=== PATIENT | male | born 1935 | race Caucasian/White ===

== ENCOUNTER 2021-10-12 17:09 | Inpatient (IN) | payer MEDICARE ==
[~2021-10-12] VITALS: Ht 162.6 cm; Wt 59.2 kg
[~2021-10-12 17:09] MED LIST: DIFLUCAN150 MG PO
[2021-10-12 19:00] VITALS: BP 166/91; PULSE 111; TEMP 98.2
--- NOTE | 2021-10-12 19:00 | NUR ---
RECEIVED REPORT FROM DAY SHIFT RN, RAMÓN, THAT PATIENT IS EN ROUTE FROM [facility] FOR ADMIT TO ROOM 344 AND THAT EMS TRANSPORT OF PATIENT WAS AT LEAST 10 MIN OUT FROM ARRIVAL TO [facility]. WAITING FOR PATIENT ARRIVAL
--- NOTE | 2021-10-12 19:00 | NUR ---
PATIENT ARRIVED TO ROOM 344 VIA EMS CART. OBSERVED PATIENT WITH O2 AT 2 LPM, SOA WITH EXERTION. IV SITE TO RAC, SALINE LOCKED. PATIENT DENIES PAIN TO ABD ON PALPATION. NO FAMILY PRESENT WITH PATIENT. PATIENT CONFUSED TO PLACE, DID NOT KNOW WHY HE IS IN THE HOSPITAL, STATED "I KNOW I DIDN'T FEEL GOOD".
[2021-10-12] MEDS ORDERED: LEVOXYL0.05 MG PO (19:28)
--- NOTE | 2021-10-12 19:38 | NUR ---
PATIENT NOT ORIENTED TO PLACE, SITUATION. SPEAKS CLEARLY AT TIME OF ADMISSION. OBSERVED SOA WITH EXERTION. DENIES CHEST PAIN/SOA. VOIDED DARK URINE WITH STRONG ODOR. NO SKIN WOUNDS OBSERVED TO BACK/BUTTOCKS/EXTREMITIES AT TIME OF ADMIT. DR BOWERS PRESENT TO EXAM PATIENT. NO FAMILY PRESENT WHEN PATIENT WAS ADMITTED.
[2021-10-12] MEDS ORDERED: COZAAR 50MG50 MG/TAB PO (19:50)
[2021-10-12] MEDS ORDERED: NAMENDA 10MG TA10 MG PO (19:51)
[2021-10-12] MEDS ORDERED: IMDUR 30MG30 MG/TAB PO (19:51)
[2021-10-12] MEDS ORDERED: EXELON3 MG PO (19:54)
[2021-10-12] MEDS ORDERED: CELEXA 20MG20 MG/TAB PO (19:57)
[2021-10-12] MEDS ORDERED: ASPIRIN 81M81 MG/TA2 PO (19:57)
[2021-10-12] MEDS ORDERED: MOBIC15 MG PO (19:58)
[2021-10-12] MEDS ORDERED: CRESTOR 10MG10 MG PO (19:58)
[2021-10-12] MEDS ORDERED: RESTORIL 1515 MG/CAP PO (19:59)
[2021-10-12] MEDS ORDERED: FLOMAX 0.40.4 MG/CAP PO (20:00)
[2021-10-12] MEDS ORDERED: CPAP (20:17)
[2021-10-12 20:43] VITALS: BP 180/101; PULSE 121
--- NOTE | 2021-10-12 20:43 | NUR ---
PATIENT DIAPHORETIC, PATIENT UNSURE OF CHEST BUT SAYS YES TO PAIN TO CHEST WITH TOUCH.
--- NOTE | 2021-10-12 20:50 | NUR ---
DR BOWERS NOTIFIED OF PATIENT'S COMPLAINTS OF CHEST PAIN, DIAPHORETIC. ORDERS GIVEN TO CALL HOSPITALIST. EKG ORDERED BY CHARGE NURSE. HOSPITALIST CALLED INFORMED OF PATIENT'S STATUS, ORDERS FOR LAB TO BE DRAWN.
[2021-10-12 20:53] VITALS: BP 172/73; PULSE 121; TEMP 99.2
--- NOTE | 2021-10-12 20:53 | NUR ---
NASIM CONWAY HERE, TO SEE PATIENT. LAB HERE FOR BLOOD DRAW.
[2021-10-12 20:57] VITALS: BP 166/88; PULSE 125
--- NOTE | 2021-10-12 21:26 | NUR ---
SPOKE WITH , CONSENT FOR SURGERY OBTAINED VIA PHONE, WITNESS BY RNLEANNA. PATIENT PLACED ON TELE, NASIM CONWAY ENTERED ORDERS FOR NITRODRIP TO BE STARTED PRIOR TO TRANSPORTING DOWN TO SURGERY, RECORDS MANAGER INFORMED. PROCESS COORDINATOR PRESENT NOW TO GET NITRO DRIP STARTED, HOME HEALTH RN HERE TO TAKE PATIENT DOWN TO SURGERY.
[2021-10-12 21:30] VITALS: BP 164/111; PULSE 121
--- NOTE | 2021-10-12 21:41 | NUR ---
PATIENT TO SURGERY VIA BED WITH O2 AND NITRODRIP STARTED WITH LR RUNNING CONCURRENTLY.
--- NOTE | 2021-10-12 21:42 | NUR ---
PATIENT PLACED ON TELE PRIOR TO TRANSPORT TO SURGERY.
[2021-10-13] VITALS (655 sets, daily range): BP systolic 95–195; BP diastolic 41–94; PULSE 74–100; TEMP 97.8–99.9; O2SAT 86–100
--- NOTE | 2021-10-13 00:24 | NUR ---
REPORT GIVEN TO SERVICE LINE COORDINATORKAYE OF PATIENT'S STATUS PREOP.
--- NOTE | 2021-10-13 00:34 | NUR ---
PATIENT ARRIVED FROM OR VIA ICU BED WITH AREA SAFETY MANAGER AND 2 ADDITIONAL STAFF IN ATTENDANCE, PATIENT CONNECTED TO ICU MONITORS INCLUDING ART LINE MONITOR, BEDSIDE REPORT GIVEN TO THIS NURSE REGARDING EVENTS THAT OCCURED IN OR INCLUDING PROCEDURES AND MEDICATIONS GIVEN ALONG WITH ISSUES MAINTAINING B/P AND NEEDING MEDICATION TO ASSIST WITH MAINTAINING B/P. NOTED PATIENT HAS A DRESSING TO MIDLINE ABDOMEN THAT IS CLEAN DRY AND INTACT WITH A WINNIE DRAIN WITH SMALL AMOUNT OF SANGUINEOUS DRAINAGE PRESENT IN BULB. PATIENT IS CURRENTLY ON NITRO DRIP AT 5MCG/MIN. PATIENT IS NOTED TO BE INTUBATED AND CURRENTLY SEDATED WITHOUT ANY SPONTANEOUS OR MEANINGFUL MOVEMENTS. REMAINING DETAILS IN ASSESSMENT CHARTING
[2021-10-13 03:07] LABS: ARTERIAL BLD GAS O2 SATURATION 97.4 % (92-100); ARTERIAL BLD GAS TCO2 CT 21.9; ARTERIAL BLOOD GAS BASE EXCESS -3.4 (-2-2); ARTERIAL BLOOD GAS HCO3 20.8 meq/L (22-26); ARTERIAL BLOOD GAS PCO2 34.7 mmHg (35-45); ARTERIAL BLOOD GAS PO2 102.9 mmHg (80-100)
--- NOTE | 2021-10-13 03:15 | NUR ---
NITRO DRIP STOPPED AT THIS TIME DUE TO LOW B/P WILL CONTINUE TO MONITOR
--- NOTE | 2021-10-13 03:17 | NUR ---
B/P DECREASING NOTIFIED ZORAIDA ROUES ORDER RECEIVED FOR LEVOPHED INITIATED AND TITRATED TO ATTAIN APPROPRIATE B/P
--- NOTE | 2021-10-13 05:00 | NUR ---
PATIENT STARTED ON A TITRATION OF SEDATION TO BALANCE B/P AND COMFORT FOR PATIENT, PATIENT IS ABLE TO AWAKEN TO VOICE BUT FALLS EASILY BACK TO SLEEP, DENIES PAIN BY SHAKING HEAD
[2021-10-13 05:35] LABS: HEMOGLOBIN 12.5 g/dl (13.5-18.0); MEAN CELL VOLUME 93 fl (80.0-100.0); MEAN CORPUSCULAR HEMOGLOBIN 31 pg (27-31); MEAN CORPUSCULAR HGB CONC 34 g/dl (33.0-37.0); MEAN PLATELET VOLUME 10.2 fl (7.4-10.4); PLATELET COUNT 212 K/mm3 (130-400); RED BLOOD COUNT 3.98 M/mm3 (4.20-5.60); REDCELL DISTRIBUTION WIDTH-CV 13.9 % (11.5-14.5)
[2021-10-13 05:51] LABS: ALBUMIN 2.5 gm/dL (3.4-4.8); BILIRUBIN,TOTAL 0.6 mg/dL (0.2-1.2); CALCIUM 8.2 mg/dL (8.4-10.2); CREATININE, serum 0.79 mg/dL (0.72-1.25); MAGNESIUM 1.7 mg/dL (1.6-2.6); TOTAL PROTEIN 5.2 gm/dL (6.2-8.1)
[2021-10-13 05:53] LABS: BAND 23 % (0-10); LYMPHOCYTE 1 % (20.0-51.0); NEUTROPHILS 75 % (42.0-75.2); PLATELET ESTIMATE NORMAL (NORMAL)
[2021-10-13 05:57] LABS: TROPONIN-I 0.017 ng/mL (0.00-0.033)
--- NOTE | 2021-10-13 06:04 | NUR ---
PATIENT RETURNED FROM OR AT 0034 INTUBATED S/P EX.LAP LESS THAN 24 HOURS OF INTUBATION, ALSO NOTED THAT PATIENT OPENS EYES WHEN TO VOICE AND TURN TO LOOK AT PERSON SPEAKING THEREFORE SEDATION VACATION NOT PREFORMED AT THIS TIME
--- NOTE | 2021-10-13 12:41 | NUR ---
Patient intubated. Phone call made to his Kely to complete intake information. Kely is tearful on the phone due to being worried about him and is frustrated by his "stubbornness". Kely reports that they both live at home alone in [place]. Patient is independent with his ADL's and does not utilize any DME to assist with mobility. Patient has no oxygen needs at home but does use a CPAP at home managed through [facility] in [place]. PCP is Yenny Gao at [facility] and they utilize [facility] for short term medications. roasterman medications are managed through [facility]. Kely reports that he does have a DPOA-HC on file and that [facility] should have a copy.
--- NOTE | 2021-10-13 17:23 | NUR ---
1355- pt extubated. pt on 2L NC spo2 96%. pt is confused but pleasant. denies pain unless moving.
[2021-10-14] VITALS (322 sets, daily range): BP systolic 143–155; BP diastolic 74–85; PULSE 72–89; TEMP 98.7–99.8; O2SAT 90–100
[2021-10-14 05:34] LABS: BASO % 0.1 % (0.0-2.0); GRAN # 6.9 K/mm3 (1.4-6.5); GRAN % 87.7 % (42.2-75.2); HEMOGLOBIN 10.8 g/dl (13.5-18.0); LYMPH # 0.4 K/mm3 (1.2-3.4); LYMPH % 4.9 % (20.0-51.0); MEAN CELL VOLUME 94 fl (80.0-100.0); MEAN CORPUSCULAR HEMOGLOBIN 31 pg (27-31); MEAN CORPUSCULAR HGB CONC 33 g/dl (33.0-37.0); MONO # 0.6 K/mm3 (0.1-0.6); PLATELET COUNT 176 K/mm3 (130-400); RED BLOOD COUNT 3.51 M/mm3 (4.20-5.60); REDCELL DISTRIBUTION WIDTH-CV 13.9 % (11.5-14.5)
[2021-10-14 05:41] LABS: HEMATOCRIT 33.1 % (42.0-52.0)
[2021-10-14 05:51] LABS: ALBUMIN 2.2 gm/dL (3.4-4.8); BILIRUBIN,TOTAL 0.5 mg/dL (0.2-1.2); C-REACTIVE PROTEIN 14.74 mg/dL (0.00-0.50); CALCIUM 7.9 mg/dL (8.4-10.2); CREATININE, serum 0.76 mg/dL (0.72-1.25); MAGNESIUM 1.8 mg/dL (1.6-2.6); POTASSIUM 3.8 mmol/L (3.5-4.5); TOTAL PROTEIN 4.8 gm/dL (6.2-8.1)
[2021-10-14 06:38] LABS: ARTERIAL BLD GAS O2 SATURATION 94.5 % (92-100); ARTERIAL BLD GAS TCO2 CT 25.5; ARTERIAL BLOOD GAS BASE EXCESS 0.6 (-2-2); ARTERIAL BLOOD GAS HCO3 24.3 meq/L (22-26); ARTERIAL BLOOD GAS PO2 69.5 mmHg (80-100); ARTERIAL BLOOD GAS pH 7.45 (7.35-7.45)
--- NOTE | 2021-10-14 07:00 | NUR ---
PT RESTING IN BED. VSS. PT HAS IVF RUNNING. NO NEEDS AT THIS TIME. WILL CONTINUE TO MONITOR.
--- NOTE | 2021-10-14 10:45 | NUR ---
First visit from the sustainability coach. No needs right now.
--- NOTE | 2021-10-14 12:25 | NUR ---
1210-REPORT CALLED TO GER FRANKLIN ALL QUESTIONS ANSWERED. 1225-PT TRANSFERED TO ROOM 326. GER FRANKLIN MET BEDSIDE.
--- NOTE | 2021-10-14 12:46 | NUR ---
PT TO ROOM 326 PER BED FROM ICU. PT IS ALERT AND PARTIALLY ORIENTED. LUNGS CTA, ON 2 L O2 PNC. WINNIE DRAIN WITH SEROSANGUENOUS DRAINAGE. RAMIREZ CATHETER TO DD. MID LINE INCISON WITH ABD AND GAUZE. PT RESTING QUIETLY IN BED. SKIN INTACT AT THIS TIME. PT HAS DEMNTIA BASELINE. PT IS FULL CODE. PT TOLERATING CLEAR LIQUIDS AT THIS TIME.
--- NOTE | 2021-10-14 12:55 | NUR ---
PT HAS A CENTRAL LINE SUBCLAVIAN LEFT WITH LR @75 MLS/HR.
--- NOTE | 2021-10-14 21:00 | NUR ---
PT IN BED. ORIENTED TO SELF. HAS RAMIREZ TO BSD, CARES GIVEN, URINE YELLOW. HAS RLQ WINNIE DRAIN WITH SEROSANGUINOUS DRAINAGE, EMPTIED 80CC. PT PULLING AT WINNIE DRAIN AND HAS DRSG TO MIDLINE PARTIALLY REMOVED. CHANGED ABD DRSG AND REPLACED DRAIN SPONGES TO WINNIE SITE. ATTEMPTED TO REORIENT PT AT THIS TIME. LEFT SUBCLAVIAN FLUSHES WELL. BED ALARM ON.
[2021-10-15] VITALS (12 sets, daily range): BP systolic 136–179; BP diastolic 70–89; PULSE 67–102; TEMP 97.5–98.7
--- NOTE | 2021-10-15 | NUR ---
PT HAS LEGS OVER SIDE OF BED, ASKING FOR HIS PANTS AND SHIRT. DOES NOT KNOW WHERE HE IS. ATTEMPTED REORIENTATION, DOES NOT LAST LONG. ASSISTED UP IN BED. IS NPO FOR ERCP TODAY.
--- NOTE | 2021-10-15 03:00 | NUR ---
HAS LEGS OVER SIDE OF BED. ASSISTED BACK TO BED.
[2021-10-15 08:49] LABS: BASO % 0.1 % (0.0-2.0); GRAN # 6.6 K/mm3 (1.4-6.5); GRAN % 86.8 % (42.2-75.2); HEMATOCRIT 37.8 % (42.0-52.0); HEMOGLOBIN 12.7 g/dl (13.5-18.0); LYMPH # 0.4 K/mm3 (1.2-3.4); LYMPH % 5.5 % (20.0-51.0); MEAN CELL VOLUME 92 fl (80.0-100.0); MEAN CORPUSCULAR HEMOGLOBIN 31 pg (27-31); MEAN CORPUSCULAR HGB CONC 34 g/dl (33.0-37.0); MEAN PLATELET VOLUME 9.6 fl (7.4-10.4); MONO # 0.6 K/mm3 (0.1-0.6); MONO % 7.2 % (1.7-9.3); PLATELET COUNT 214 K/mm3 (130-400); RED BLOOD COUNT 4.11 M/mm3 (4.20-5.60); REDCELL DISTRIBUTION WIDTH-CV 13.2 % (11.5-14.5)
[2021-10-15 08:59] LABS: CALCIUM 8.4 mg/dL (8.4-10.2); CREATININE, serum 0.73 mg/dL (0.72-1.25); POTASSIUM 3.7 mmol/L (3.5-4.5)
--- NOTE | 2021-10-15 10:24 | NUR ---
PT RESTING IN BED WAITING FOR ERCP. REPORT GIVEN. NEW DRESSING AQUACEL OVER MIDLINE AND DRAIN SPONGES CHANGED WHEN DRESSING BECAME SOILED.
--- NOTE | 2021-10-15 10:32 | NUR ---
The patient is to have an ERCP today. SW asked the PA for PT/OT to be ordered. Will await therapy's recs.
--- NOTE | 2021-10-15 14:16 | NUR ---
PT TO ROOM 326 PER BED WITH REPORT FROM ARISTEO FRANKLIN ENDO. VSS, PT IS ALERT INTERMITTANT CONFUSION.
--- NOTE | 2021-10-15 20:00 | NUR ---
Bedside report received, assumed care for manufacturing recruiter. Assessment complete. Alert but not oriented. VS stable. Denies pain/nausea/shortness of breath. Dressing to midline abdominal incision CDI. TELE reporting SR. WINNIE drain with serosanguineous ouput. Bean cath with clear yellow urine. Left triple lumen subclavian flushes well-good blood return. Plan of care discussed for this shift. Denies current needs. Call light in reach. Will monitor.
--- NOTE | 2021-10-16 00:30 | NUR ---
Resting eyes closed. No s/s of pain noted. Call light in reach. Will monitor.
[2021-10-16 00:36] VITALS: BP 154/76; PULSE 90; TEMP 98.8
[2021-10-16 04:45] VITALS: BP 154/81; PULSE 84; TEMP 97.9
--- NOTE | 2021-10-16 04:54 | NUR ---
Patient had an uneventful night and rested better than previous shift. Still confused. Left TLC flushes well with good blood return. Dressing to abd CDI. VS remained stable. Denied pain/nausea/shortness of breath-no s/s of. Bean cath with clear yellow urine. Call light in reach. Will monitor.
[2021-10-16 07:34] VITALS: BP 155/83; PULSE 87; TEMP 98.5
[2021-10-16 09:16] LABS: BASO % 0.1 % (0.0-2.0); EOS % 0.2 % (0.0-4.0); GRAN # 9.1 K/mm3 (1.4-6.5); GRAN % 89.7 % (42.2-75.2); HEMOGLOBIN 11.9 g/dl (13.5-18.0); LYMPH # 0.3 K/mm3 (1.2-3.4); LYMPH % 3.3 % (20.0-51.0); MEAN CELL VOLUME 92 fl (80.0-100.0); MEAN CORPUSCULAR HEMOGLOBIN 31 pg (27-31); MEAN CORPUSCULAR HGB CONC 34 g/dl (33.0-37.0); MEAN PLATELET VOLUME 9.6 fl (7.4-10.4); MONO # 0.7 K/mm3 (0.1-0.6); MONO % 6.4 % (1.7-9.3); PLATELET COUNT 224 K/mm3 (130-400); RED BLOOD COUNT 3.86 M/mm3 (4.20-5.60); REDCELL DISTRIBUTION WIDTH-CV 13.2 % (11.5-14.5)
[2021-10-16 09:24] LABS: HEMATOCRIT 35.5 % (42.0-52.0)
--- NOTE | 2021-10-16 09:38 | NUR ---
PROCEDURE IS EXPLAINED TO PT, PT IS COOPERATIVE, UNDERSTANDING IS LIMITED. NG TUBE HAS BEEN INSERTED INTO PT'S LEFT NARE, EPIGASTRIC CONTENTS DRAINING VIA WALL SUCTION @ THIS TIME. CONTENTS ARE DARK GREEN ET THERE IS A LARGE AMOUNT. PLACEMENT IS CONFIRMED BY CONTENTS ET AUSCULTATION. TUBE IS SECURED WITH TAPE TO NOSE ET GOWN. PT IS COOPERATIVE BUT IS VERY FORGETFUL ET HAS BEEN PULLING ON OTHER TUBES. MITTS PLACED ON PT'S BILATERAL HANDS. OXYGEN IS ON VIA NC. BED ALARM IS ON.
[2021-10-16 09:56] LABS: ALBUMIN 2.6 gm/dL (3.4-4.8); BILIRUBIN,TOTAL 0.7 mg/dL (0.2-1.2); CALCIUM 8.3 mg/dL (8.4-10.2); CREATININE, serum 0.85 mg/dL (0.72-1.25); POTASSIUM 3.3 mmol/L (3.5-4.5); TOTAL PROTEIN 5.6 gm/dL (6.2-8.1)
--- NOTE | 2021-10-16 10:48 | NUR ---
NG TUBE CLAMPED @ THIS TIME FOR 30 MINUTES FOR PT TO TAKE PO MEDS.
[2021-10-16 11:11] VITALS: BP 142/85; PULSE 93; TEMP 98
--- NOTE | 2021-10-16 11:45 | NUR ---
PT is recommending that the patient may need post-acute rehab upon discharge. He is walking 16 ft. SW attended clinical rounds. The patient had an NG tube placed. He vomited this morning. ESDRAS staffed with the hospitalist and the patient is to be here through the weekend. ESDRAS contacted the patient's , Kely, and updated her on the above and discussed post-acute rehab. Kely is interested in rehab and would prefer a facility in [place]. Her preferences are 1) [facility] 2) [facility] 3) [place] [facility]. Kely states that she is hopeful she can take the patient home from rehab, but is not sure yet. She will have to work with the facility. She reports that if the patient is needing a longer stay, they can not afford to private pay. ESDRAS discussed Medicaid. Kely states that she looked into Medicaid around [place] time and she was told that the patient would not qualify. They own a house and the patient has a pension. She would be interested to talking to our Financial Counselor and applying for Medicaid. ESDRAS consulted Curtis with Financial Counseling. ESDRAS contacted and faxed a referral to [facility] and [facility]. The patient has Medicare [facility], which requires auth. A request for auth will need to be submitted once it gets closer to discharge. *Discharge plan: SNF*
--- NOTE | 2021-10-16 13:19 | NUR ---
NG TUBE REMAINS IN PLACE ON LOW INTERMITTENT SUCTION. EPIGASTRIC CONTENTS ARE NOW CLEAR GREEN WITH SOLID PIECES SEEN IN TUBING. PT IS WORKING WITH PHYSICAL THERAPY @ THIS TIME.
--- NOTE | 2021-10-16 14:40 | NUR ---
Zaria, at [facility], states that they are not in-network with the patient's insurance. ESDRAS attempted to contact Stephanie at [facility]. ESDRAS left her a voicemail and faxed her the referral.
[2021-10-16 15:47] VITALS: BP 151/69; PULSE 84; TEMP 98.8
--- NOTE | 2021-10-16 16:04 | NUR ---
Whit, at [facility], reports that they are unable to meet the patient's needs and have declined the patient. ESDRAS contacted the patient's , Kely, to update and to discuss sending more referrals out, in the event [facility] cannot take. Kely states that she would prefer a facility close to [place]. She is interested in [facility] in [place]. She would prefer not to have to come to [place]. ESDRAS contacted and faxed a referral to [facility] in [place], [facility] in [place], [facility], [place], and [facility]. Awaiting screens.
--- NOTE | 2021-10-16 16:16 | NUR ---
PT HAS BEEN REPOSITIONED IN BED SEVERAL TIMES. GAYMAR BOOTS PLACED ONTO PT'S BILATERAL FEET FOR PROTECTION. PT APPEARS RELAXED WITH EYES CLOSED. NG TUBE IN PLACE ON LOW INTERMITTENT SUCTION, CONTENTS ARE CLEAR GREEN WITH SOLID PIECES SEEN IN TUBING.
[2021-10-16 20:29] VITALS: BP 153/74; PULSE 77; TEMP 98.1
--- NOTE | 2021-10-16 21:12 | NUR ---
PT RESTING CALMLY BUT CONFUSED. DENEIS PAIN. SEE SHIFT ASSESSMENT. CALL LIGHT IN REACH. BED ALARM SET.
[2021-10-17 00:16] VITALS: BP 146/66; PULSE 75; TEMP 99.3
--- NOTE | 2021-10-17 04:19 | NUR ---
PT HAS SLEPT INTERMITTENTLY THROUGH THE NIGHT. CALM AND COOPERATIVE. TOTAL NG DARK GREEN DRAINAGE 140CC THIS SHIFT. WINNIE DRAIN RED BLOODY 30CC.
[2021-10-17 04:26] VITALS: BP 145/69; PULSE 74; TEMP 98.5
[2021-10-17 06:24] LABS: BASO % 0.1 % (0.0-2.0); EOS # 0.1 K/mm3 (0.0-0.7); EOS % 1.1 % (0.0-4.0); GRAN % 84.7 % (42.2-75.2); HEMOGLOBIN 10.4 g/dl (13.5-18.0); LYMPH # 0.4 K/mm3 (1.2-3.4); MEAN CELL VOLUME 95 fl (80.0-100.0); MEAN CORPUSCULAR HEMOGLOBIN 31 pg (27-31); MEAN CORPUSCULAR HGB CONC 33 g/dl (33.0-37.0); MEAN PLATELET VOLUME 9.8 fl (7.4-10.4); MONO # 0.7 K/mm3 (0.1-0.6); MONO % 8.6 % (1.7-9.3); PLATELET COUNT 198 K/mm3 (130-400); RED BLOOD COUNT 3.34 M/mm3 (4.20-5.60); REDCELL DISTRIBUTION WIDTH-CV 13.2 % (11.5-14.5)
[2021-10-17 06:33] LABS: HEMATOCRIT 31.8 % (42.0-52.0)
[2021-10-17 06:36] LABS: CALCIUM 8.1 mg/dL (8.4-10.2); CREATININE, serum 0.69 mg/dL (0.72-1.25); POTASSIUM 3.4 mmol/L (3.5-4.5)
[2021-10-17 08:00] VITALS: BP 153/64; PULSE 64; TEMP 98.7
--- NOTE | 2021-10-17 09:04 | NUR ---
Patient up to the chair this am. He was steady on his feet. rounded, plan of care reviewed. Ng tube clamped per orders. Filippo drain Dc per orders. Patient tolerated well. Triple lumen with medication per orders. New dressing applied & blood return adequate. Bean to DD. Patient remains Npo, but denies nausea. Bowels still hypoactive. Will encourage activity today. Log Brander assisted with hygiene. I did speak to Gail Holland about possible thrush noted when oral cares given by this nurse. High fall risk protocol followed. Zenon mccoy.
--- NOTE | 2021-10-17 11:48 | NUR ---
Patient sitting up in chair, denies pain. Denies nausea. Ng tube remains clamped, residual 4 mls. Zenon mccoy.
[2021-10-17 12:00] VITALS: BP 137/63; PULSE 65; TEMP 98.6
--- NOTE | 2021-10-17 14:47 | NUR ---
Patient assisted out of chair to ambulate. He ambulated to doorwalk with walker & he did well. No dyspnea & steady on his feet with walker. He is in good spirits. His family did visit this afternoon. Ng remains clamped without nausea. Will monitor.
[2021-10-17 16:00] VITALS: BP 156/84; PULSE 85; TEMP 98.1
--- NOTE | 2021-10-17 18:24 | NUR ---
Elan is sitting up in chair. warm blanket provided.
--- NOTE | 2021-10-17 18:44 | NUR ---
Patient up and we ambulated halls. Stand by assist with walker, he did well. Walked greater than 200 feet. Patient 92 percent on room air after walking halls without oxygen. Patient sitting up in chair with feet reclined. Denies pain & nausea. Will report off to night nurse
[2021-10-17 19:49] VITALS: BP 128/75; PULSE 83; TEMP 98.4
--- NOTE | 2021-10-17 19:59 | NUR ---
PT AWAKE AND SITTING IN CHAIR. CONFUSED BUT CALM AND COOPERATIVE. DENIES NEEDS. NG CLAMPED AT THIS TIME. NO GI COMPLAINTS. NO RESIDUAL. CALL LIGHT IN REACH. WATCHING TV.
[2021-10-18 00:26] VITALS: BP 140/71; PULSE 72; TEMP 98
--- NOTE | 2021-10-18 04:29 | NUR ---
PT SLEEPING. NO DISTRESS.
[2021-10-18 04:30] VITALS: BP 144/65; PULSE 80; TEMP 98.4
--- NOTE | 2021-10-18 04:51 | NUR ---
APPROXIMATELY 10CC RESIDUAL FROM NG. PT HAD BM LAST NIGHT MED LOOSE STOOL.
[2021-10-18 07:01] LABS: BASO % 0.1 % (0.0-2.0); EOS # 0.2 K/mm3 (0.0-0.7); EOS % 2.7 % (0.0-4.0); GRAN # 6.5 K/mm3 (1.4-6.5); GRAN % 83.8 % (42.2-75.2); HEMOGLOBIN 10.4 g/dl (13.5-18.0); LYMPH # 0.4 K/mm3 (1.2-3.4); LYMPH % 5.3 % (20.0-51.0); MEAN CELL VOLUME 93 fl (80.0-100.0); MEAN CORPUSCULAR HEMOGLOBIN 32 pg (27-31); MEAN CORPUSCULAR HGB CONC 34 g/dl (33.0-37.0); MONO # 0.6 K/mm3 (0.1-0.6); MONO % 7.3 % (1.7-9.3); PLATELET COUNT 244 K/mm3 (130-400); REDCELL DISTRIBUTION WIDTH-CV 13.2 % (11.5-14.5)
[2021-10-18 07:09] LABS: HEMATOCRIT 30.8 % (42.0-52.0)
[2021-10-18 07:23] LABS: CALCIUM 7.8 mg/dL (8.4-10.2); CREATININE, serum 0.65 mg/dL (0.72-1.25); POTASSIUM 3.5 mmol/L (3.5-4.5)
--- NOTE | 2021-10-18 07:50 | NUR ---
PT RESTING IN BED WITH 2LIT VIA NC ON. RAMIREZ DRAINING AT BEDSIDE YELLOW CLEAR URINE. NO NG TUBE IS IN PLACE. PT STATES NO PAIN OR NEEDS AT THIS TIME. CALL LIGHT IS WITHIN REACH.
[2021-10-18 08:04] VITALS: BP 149/75; PULSE 76; TEMP 98.3
[2021-10-18 11:46] VITALS: BP 151/73; PULSE 73; TEMP 98.7
[2021-10-18 16:00] VITALS: BP 134/76; PULSE 92; TEMP 98.5
--- NOTE | 2021-10-18 18:22 | NUR ---
PT SITTING UP IN CHAIR ON ROOM AIR. RAMIREZ IS DRAINING AT BEDSIDE CLEAR YELLOW URINE. PT STATES THAT HE IS NOT AHVING ANY PAIN AT THIS TIME. PT STATES NO NEEDS AT THIS TIME. CALL LIGHT IS WITHIN REACH.
[2021-10-18 20:24] VITALS: BP 137/76; PULSE 91; TEMP 97.6
--- NOTE | 2021-10-18 22:00 | NUR ---
Pt doing well at this time. Assisted pt to bed earlier in shift. Pt did well and was steady on his feet. Pt is confused. He does not report having any pain. Incision is well approximated with charles intact. Gauze from drain removal site does have drainage on it, gauze changed at this time. No needs verbalized, bed alarm on and call light within reach
[2021-10-19 00:32] VITALS: BP 151/97; PULSE 79; TEMP 98.4
[2021-10-19 04:33] VITALS: BP 149/70; PULSE 62; TEMP 98.5
--- NOTE | 2021-10-19 06:08 | NUR ---
Pt slept off and on throughout the night. Continues to not have any complaints of pain. SCDs on bilaterally and Bean to dependent drainage. Repositioned pt, no needs verbalized, bed alarm on and call light within reach
[2021-10-19 06:40] LABS: BASO % 0.2 % (0.0-2.0); EOS # 0.2 K/mm3 (0.0-0.7); EOS % 3.1 % (0.0-4.0); GRAN # 4.7 K/mm3 (1.4-6.5); HEMOGLOBIN 10.5 g/dl (13.5-18.0); LYMPH # 0.5 K/mm3 (1.2-3.4); LYMPH % 8.5 % (20.0-51.0); MEAN CELL VOLUME 91 fl (80.0-100.0); MEAN CORPUSCULAR HEMOGLOBIN 31 pg (27-31); MEAN CORPUSCULAR HGB CONC 34 g/dl (33.0-37.0); MEAN PLATELET VOLUME 9.7 fl (7.4-10.4); MONO # 0.4 K/mm3 (0.1-0.6); MONO % 7.3 % (1.7-9.3); PLATELET COUNT 285 K/mm3 (130-400); RED BLOOD COUNT 3.38 M/mm3 (4.20-5.60); REDCELL DISTRIBUTION WIDTH-CV 13.1 % (11.5-14.5)
[2021-10-19 06:48] LABS: HEMATOCRIT 30.8 % (42.0-52.0)
[2021-10-19 07:08] LABS: CALCIUM 7.9 mg/dL (8.4-10.2); CREATININE, serum 0.67 mg/dL (0.72-1.25); POTASSIUM 3.6 mmol/L (3.5-4.5)
[2021-10-19 08:16] VITALS: BP 158/92; PULSE 85; TEMP 98.1
--- NOTE | 2021-10-19 11:44 | NUR ---
RAMIREZ AND TELE WAS REMOVED PER ORDER.
[2021-10-19 12:10] VITALS: BP 140/82; PULSE 86; TEMP 97.9
--- NOTE | 2021-10-19 16:14 | NUR ---
Property Staff Accountant spoke with Stephanie at [facility] who advised she will work on submitting for authorization and will have patient's PCP, Dr. Gao review the referral once she returns to the office tomorrow morning. ESDRAS faxed clinical updates. E[facility]RAS contacted [facility], who are both still reviewing referral.
[2021-10-19 16:59] VITALS: BP 134/76; PULSE 98; TEMP 98
--- NOTE | 2021-10-19 18:04 | NUR ---
PT SITTING UP IN CHAIR FINISHING DINNER. PT ON ROOM AIR. PT HAD RAMIREZ REMOVED AND HAS VOIDED SINCE. PT STATES NO PAIN OR NEEDS AT THIS TIME. CALL LIGHT IS WITHIN REACH.
[2021-10-19 20:47] VITALS: BP 135/86; PULSE 105; TEMP 99.5
--- NOTE | 2021-10-19 21:13 | NUR ---
Patient has been resting in his chair for couple hours- watching some TV- confused/very pleasant- chair alarm on, noted some bleeding on gown- pt had pulled out his triple lumen cathter-catheter totally out-catheter intact, , but sutures still intact- did take out sutures--- will let Shannan CONWAY know- new INT started to right hand, Up to bathroom with assist- voided, and also had some liquid brown stool-back to bed , bed alarm on, put mitts on . [place] open to air on abdomen-gauze to previous kyung site.
[2021-10-20] VITALS (7 sets, daily range): BP systolic 96–156; BP diastolic 47–92; PULSE 95–113; TEMP 97.6–98.7
--- NOTE | 2021-10-20 05:41 | NUR ---
Has not slept much last night- confused ,pleasant and cooperative- continues with mitts on, IV fluids of D5 1/2 at 60cc/hr- getting IV zosyn at this time, highest temp tonight was 99.5
[2021-10-20 06:33] LABS: BASO % 0.1 % (0.0-2.0); EOS # 0.2 K/mm3 (0.0-0.7); GRAN # 7.2 K/mm3 (1.4-6.5); GRAN % 85.2 % (42.2-75.2); HEMATOCRIT 30.3 % (42.0-52.0); HEMOGLOBIN 10.4 g/dl (13.5-18.0); LYMPH # 0.5 K/mm3 (1.2-3.4); LYMPH % 5.5 % (20.0-51.0); MEAN CELL VOLUME 90 fl (80.0-100.0); MEAN CORPUSCULAR HEMOGLOBIN 31 pg (27-31); MEAN CORPUSCULAR HGB CONC 34 g/dl (33.0-37.0); MEAN PLATELET VOLUME 9.5 fl (7.4-10.4); MONO # 0.5 K/mm3 (0.1-0.6); MONO % 6.3 % (1.7-9.3); PLATELET COUNT 299 K/mm3 (130-400); RED BLOOD COUNT 3.35 M/mm3 (4.20-5.60); REDCELL DISTRIBUTION WIDTH-CV 13.1 % (11.5-14.5)
[2021-10-20 06:48] LABS: CALCIUM 7.8 mg/dL (8.4-10.2); CREATININE, serum 0.7 mg/dL (0.72-1.25); POTASSIUM 3.6 mmol/L (3.5-4.5)
--- NOTE | 2021-10-20 07:54 | NUR ---
PT LAYING IN BED RESTING ON ROOM AIR. PT STATES THAT HE IS NOT HAVING ANY PAIN AT THIS TIME. MIDLINE ABD INCISION IS INTACT WITH JOSELUIS AND OPEN TO AIR. NO REDNESS OR DRAINING IS NOTED. WINNIE DRAIN SITE ON RIGHT SIDE IS COVERED WITH GAUZE. IS DRY AND INTACT. CALL LIGHT IS WITHIN REACH.
--- NOTE | 2021-10-20 15:24 | NUR ---
Binder Folder Operator spoke with Stephanie at [facility] who advised after review they feel patient would be better fit for SNF. SW contacted patient's , Kely who advised her preferences would be [facility], then the [facility]. ESDRAS was contacted by [employer] [facility]) and they are having their medical billing clerk review clinicals. ESDRAS faxed updates to [facility], [facility], and [facility]. ESDRAS contacted [facility] and they can possibly take patient this week with insurance auth.
--- NOTE | 2021-10-20 16:02 | NUR ---
SNF auth was denied and request was made for peer to peer. #[phone] option 5. Deadline tomorrow at 1100, SW to notify hospitalist.
--- NOTE | 2021-10-20 20:30 | NUR ---
Initial shift assessment done, sitting up in chair, watching TV, chair alarm on, pleasant, confused, cooperative,,VSS, did eat a chocolate pudding for a snack tonight-- denies pain/nausea. Abd round,soft with active bowel sounds. Up to bathroom- standby assist- steady on feet, voiding without issues-- back to bed- bed alarm on.
[2021-10-21 03:32] VITALS: BP 120/67; PULSE 96; TEMP 98.9
--- NOTE | 2021-10-21 04:52 | NUR ---
Sleeping good tonight-- has been up to bathroom with assist x2 to void- pleasantly confused.
[2021-10-21 07:04] VITALS: BP 127/71; PULSE 100; TEMP 98.7
[2021-10-21 11:13] VITALS: BP 95/62; PULSE 115; TEMP 97.8
--- NOTE | 2021-10-21 11:18 | NUR ---
PT'S BP MAUNALLY TAKEN WAS 95/62. NOEMI OLSON NOTIFIED ZORAIDA SOLANO OF THE RESULT. PT DENIES DIZZINESS, SOB, OR LIGHTHEADEDNESS. WILL CONTINUE TO MONITOR.
--- NOTE | 2021-10-21 11:40 | NUR ---
PT ALERT UPON ENTRY. ABLE TO REPORT TO ME HIS NAME. UNABLE TO STATE HIS BIRTHDAY AND APPEARS TO BE CONFUSED, ESPECIALLY DURING CONVERSATIONS. DENIES PAIN. OOB TO BATHROOM THIS MORNING. SHIFT ASSESSMENT COMPLETED. MEDICATIONS ADMINISTERED AND EDUCATION PROVIDED. VITAL SIGNS STABLE. REPORTED A MANUAL BP OF 95/62 TO PA. IMDUR MEDICATION HELD BY PROVIDER. PT REPORTS NO QUESTIONS AT THIS TIME. WILL CONTINUE TO MONITOR.
--- NOTE | 2021-10-21 15:30 | NUR ---
Hospitalist completed Peer to Peer phone call during rounds. Hospitalist was advised the case would be re-reviewed. SW contacted [facility] to follow up and was informed patient has been denied for SNF stay. SW met with patient's and son to provide the above update. Both expressed confusion and frustration over the denial. SW advised the hospitalist team feels patient needs SNF, however insurance still denied. SW offered to set up Home Health services and patient's selected [facility]. Patient's also expressed interest in private duty services. SW to provide information about private duty services that serve [place]. SW faxed referral to [facility]. Discharge Plan: Home with [facility]
[2021-10-21 15:54] VITALS: BP 95/55; PULSE 108; TEMP 98.7
--- NOTE | 2021-10-21 16:06 | NUR ---
SPOKE WITH PT'S FAMILY MEMBER'S AT BEDSIDE ABOUT AN HOUR AGO. ONE FAMILY MEMBER EXPRESSED CONCERN ABOUT HOW THE PT WILL GET AROUND AND HAD INQUIRED ABOUT GETTING HIM A WALKING ASSISTIVE DEVICE. [employer] HAD PREVIOUSLY SPOKE WITH THE FAMILY TODAY, BUT I FOLLOWED UP WITH HER AND SHE SAID THAT WE COULD LOOK INTO PUTTING IN THAT ORDER FOR DISCHARGE. NO OTHER CONCERNS AT THIS TIME.
--- NOTE | 2021-10-21 16:31 | NUR ---
Kylee with [facility] called and declined referral due to lack of staffing. ESDRAS contacted [facility] and faxed referral.
--- NOTE | 2021-10-21 17:04 | NUR ---
PT HAD AN UN-EVENTFUL DAY. NO ADVERSE EVENTS DURING THE SHIFT. PT DENIES PAIN. REMAINS ALERT AND ORIENTED TO PERSON, BUT DISORIENTED TO PLACE AND TIME. PT TAKES A MINUTE TO PROCESS THE CONVERSATION BEFORE BEING ABLE TO RESPOND. VITAL SIGNS STABLE. BP HAS RUN LOWER THIS AFTERNOON, PROVIDER WAS NOTIFIED EARLIER IN THE AFTERNOON. PT DENIES DIZZINESS, SOB, LIGHTHEADEDNESS. PT RESTING UP IN CHAIR. ADEQUATE INTAKE TODAY. PT REPORTS NO QUESTIONS. NO CONCERNS AT THIS TIME, WILL CONTINUE TO MONITOR.
--- NOTE | 2021-10-21 20:00 | NUR ---
Patient is in the chair, alert but disoriented. He asked for his and does not know where he is. Assessment completed, medications provided. Accepting care but refused to had his dinner. No other needs at this time. Call light within reach.
[2021-10-21 20:41] VITALS: BP 143/87; PULSE 108; TEMP 98.2
[2021-10-22 00:43] VITALS: BP 97/60; PULSE 62; TEMP 97.9
[2021-10-22 04:34] VITALS: BP 113/58; PULSE 85; TEMP 97.8
--- NOTE | 2021-10-22 05:35 | NUR ---
Patient has had a very calm night. He has been sleeping most of the time. VSS. Report will be given to day RN.
[2021-10-22 08:46] VITALS: BP 135/60; PULSE 89; TEMP 97.8
--- NOTE | 2021-10-22 09:03 | NUR ---
DR. RODRIGUEZ'S PUT IN A NURSING ORDER FOR THE PT'S ABDOMINAL JOSELUIS TO BE REMOVED. PRIOR TO REMOVAL WE COUNTED 15 TOTAL JOSELUIS. 15 JOSELUIS TOTAL WERE COLLECTED AT THE END. PT REPORTS NO PAIN. SITE IS CLEAN AND DRY. SMALL SPOT OF BLEEDING, BUT HAS SINCE STOPPED AND IS COVERED WITH A BANDAID. WILL CONTINUE TO MONITOR THE SITE.
--- NOTE | 2021-10-22 09:44 | NUR ---
PT ALERT UPON ENTRY, ORIENTED TO PERSON. DISORIENTED TO PLACE AND TIME. PT TAKES TIME TO PROCESS THE CONVERSATION. ABDOMINAL JOSELUIS REMOVED THIS MORNING. PT TOLERATED WELL. DENIES PAIN. SHIFT ASSESSMENT PERFORMED. MEDICATIONS ADMINISTERED AND EDUCATION PROVIDED. PT SAT UP TO EAT BREAKFAST. ATE ALL OF HIS BREAKFAST THIS MORNING. VITAL SIGNS STABLE. PT UP TO BATHROOM THIS MORNING. STOOL WAS REPORTED TO BE SOFT/LOOSE. WILL CONTINUE TO MONITOR. NO CONCERS AT THIS TIME.
[2021-10-22 11:40] VITALS: BP 114/62; PULSE 102; TEMP 98
--- NOTE | 2021-10-22 12:13 | NUR ---
Car Shifter spoke with RN at [facility] and they advised they would be able to accept referral and would contact patient's , Kely today. ESDRAS also obtained order for front wheeled walker and faxed it to [facility]. Peyman at [facility] stated it would be ready this afternoon. ESDRAS contacted patient's , Kely and provided the above update. ESDRAS provided address and phone number to [facility] and Kely advised they would cotton picker operator the walker on the way home from the hospital. ESDRAS reviwed IM form over the phone with Kely who verbalized understanding and gave verbal consent as signature. ESDRAS placed form in chart and placed copy in patient's room. ESDRAS advised Kely that copy was left with patient in his room. ESDRAS faxed discharge orders to [facility]. Discharge Plan: Home with [facility]
--- NOTE | 2021-10-22 16:00 | NUR ---
PT DISCHARGE INFORMATION REVIEWED WITH PATIENT AND FAMILY MEMBERS AT BEDSIDE. REMOVED IV IN RIGHT HAND. TIP INTACT. PT ATE MOST OF HIS LUNCH AND USED THE BATHROOM BEFORE DISCHARGE. ANSWERED ANY PT QUESTIONS OR CONCERNS. GOT PT DRESSED AND INTO WHEELCHAIR AND WHEELED PT OUT OF THE ADMISSIONS ENTRANCE TO THE CAR WITH THE FAMILY.
== END 2021-10-22 16:00 | disposition home health service (06) | DRG 329 ==
LOC: SURG 17:09 → ICU 19:00 → SURG 10-14 12:03 → MEDICAL 10-16 17:30
PROVIDERS: Internal Medicine; Internal Medicine Sleep Medicine; Physician Assistant; Student in an Organized Health Care Education/Training Program; Surgery; ADMIT Student in an Organized Health Care Education/Training Program
PROC: 05HY33Z Insertion of Infusion Device into Upper Vein, Percutaneous Approach (ICD-10-PCS; principal; 2021-10-13)
PROC: 0DTF0ZZ Resection of Right Large Intestine, Open Approach (ICD-10-PCS; 2021-10-13)
PROC: 0FT40ZZ Resection of Gallbladder, Open Approach (ICD-10-PCS; 2021-10-13)
PROC: 0FQ Hepatobiliary System and Pancreas, Repair (ICD-10-PCS; 2021-10-13)
PROC: BF131ZZ Fluoroscopy of Gallbladder and Bile Ducts using Low Osmolar Contrast (ICD-10-PCS; 2021-10-13)
PROC: 5A1935Z Respiratory Ventilation, Less than 24 Consecutive Hours (ICD-10-PCS; 2021-10-13)
PROC: 0BH17EZ Insertion of Endotracheal Airway into Trachea, Via Natural or Artificial Opening (ICD-10-PCS; 2021-10-13)
PROC: 0F798DZ Dilation of Common Bile Duct with Intraluminal Device, Via Natural or Artificial Opening Endoscopic (ICD-10-PCS; 2021-10-15)
DX: K56.609 Unspecified intestinal obstruction, unspecified as to partial versus complete obstruction (principal); K55.049 Acute infarction of large intestine, extent unspecified; J96.01 Acute respiratory failure with hypoxia; K80.10 Calculus of gallbladder with chronic cholecystitis without obstruction; K82.1 Hydrops of gallbladder; K55.9 Vascular disorder of intestine, unspecified; K91.71 Accidental puncture and laceration of a digestive system organ or structure during a digestive system procedure; K91.89 Other postprocedural complications and disorders of digestive system; I10 Essential (primary) hypertension; E78.00 Pure hypercholesterolemia, unspecified; E03.9 Hypothyroidism, unspecified; G47.33 Obstructive sleep apnea (adult) (pediatric); H35.30 Unspecified macular degeneration; G40.909 Epilepsy, unspecified, not intractable, without status epilepticus; N40.0 Benign prostatic hyperplasia without lower urinary tract symptoms; G30.9 Alzheimer's disease, unspecified; F02.80 Dementia in other diseases classified elsewhere, unspecified severity, without behavioral disturbance, psychotic disturbance, mood disturbance, and anxiety; Y83.8 Other surgical procedures as the cause of abnormal reaction of the patient, or of later complication, without mention of misadventure at the time of the procedure; E87.6 Hypokalemia; D64.9 Anemia, unspecified; K56.7 Ileus, unspecified; I95.9 Hypotension, unspecified; Z79.82 Long term (current) use of aspirin; Z85.47 Personal history of malignant neoplasm of testis
CPT/HCPCS: 99223; 99231-AI; 99232-AI; 99233-AI; 99239; A4314; C1751; C1769; C2625; C9113; J0330; J0690; J1100; J1610; J1650; J2060; J2370; J2405; J2543; J2704; J3010; J3480; J7050; J7060; J7120; Q9967